=== PATIENT | male | born 1945 | race Caucasian/White ===

== ENCOUNTER → 2024-01-28 09:36 | Outpatient (REF) | payer MEDICARE, OTHER, SELFPAY | LOC: DHCBS MAIN 09:36 | PROVIDERS: ATTENDING PHYSICIAN Internal Medicine Cardiovascular Disease; FAMILY PHYSICIAN Internal Medicine Geriatric Medicine | DX: I10 Essential (primary) hypertension (principal) | CPT/HCPCS: 93306 ==

== ENCOUNTER → 2024-02-13 06:14 | Outpatient (REF) | payer MEDICARE, OTHER, SELFPAY | LOC: MRI 3T 06:14 | PROVIDERS: ATTENDING PHYSICIAN Orthopaedic Surgery; FAMILY PHYSICIAN Internal Medicine Geriatric Medicine | DX: M54.12 Radiculopathy, cervical region (principal) | CPT/HCPCS: 72141 ==

== ENCOUNTER → 2025-03-28 09:37 | Outpatient (REF) | payer MEDICARE, OTHER, SELFPAY | LOC: RAD 09:37 | PROVIDERS: ATTENDING PHYSICIAN Internal Medicine Geriatric Medicine | DX: N18.32 Chronic kidney disease, stage 3b (principal); E78.2 Mixed hyperlipidemia; E74.39 Other disorders of intestinal carbohydrate absorption; E55.9 Vitamin D deficiency, unspecified; G62.9 Polyneuropathy, unspecified; R73.01 Impaired fasting glucose; M54.12 Radiculopathy, cervical region; Z13.89 Encounter for screening for other disorder; R10.10 Upper abdominal pain, unspecified; M54.9 Dorsalgia, unspecified | CPT/HCPCS: 76700 ==

== ENCOUNTER → 2025-10-23 08:38 | Outpatient (REF) | payer MEDICARE, OTHER, SELFPAY | LOC: HWRAD 08:38 | PROVIDERS: ATTENDING PHYSICIAN Internal Medicine Geriatric Medicine | DX: G54.0 Brachial plexus disorders (principal) | CPT/HCPCS: 93931 ==